=== PATIENT | female | born 1990 | race American Indian/Alaskan Native ===

== ENCOUNTER 2017-09-12 19:03 | Emergency (ER) | payer OTHER ==
[2017-09-12 20:24] VITALS: BP 148/98
[2017-09-12 21:42] LABS: Bilirubin,Urine NEG (Negative); Blood,Urine SM (Negative); Ketones,Urine NEG (Negative); Leukocyte Esterase,Urine TR (Negative); Mucus,Urine FEW /HPF; Nitrite,Urine NEG (Negative); Protein,Urine <15 mg/dL mg/dL (Negative); Urobilinogen,Urine < 2.0 mg/dL (<2.0)
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
[2017-09-12] MEDS ORDERED: NAPROSYN PO ONE (22:58)
[2017-09-12] MEDS ORDERED: TYLENOL PO ONE (22:59)
[2017-09-12] MEDS ORDERED: FLEXERIL PO ONE (22:59)
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
== END 2017-09-12 23:41 | disposition home or self-care (01) ==
LOC: EDSEX → ED 19:03
DX: M54.5 Low back pain (principal); V49.49XA Driver injured in collision with other motor vehicles in traffic accident, initial encounter; Y93.9 Activity, unspecified; Y92.9 Unspecified place or not applicable; Y99.9 Unspecified external cause status
CPT/HCPCS: 72040; 81001